=== PATIENT | female | born 1970 | race Caucasian/White ===

== ENCOUNTER → 2018-02-09 11:12 | Outpatient (CLI) | payer OTHER, SELFPAY ==
--- NOTE | 2018-02-08 11:45 | CER_PTH ---
PATIENT: CRESENCIO EDMONDSON LOC: [facility] U#:[id number] AGE/SX: 54/F ROOM: RE02/09/[address]: Dr. Vito Tovar MD : 1970 BED: DIS: SPEC #: [id number] RECD: 02/09/18 10:40 STATUS: ALEXYS JACOBY #: [id number] WALI: 02/08/18 11:[address]: Vito Tovar DEPT: SURGICAL PATHOLOGY RECD BY: Toby Mcgarry Tissues: Uterine cervix, NOS Procedures: Surgery Specimen Level IV HEADER OPERATION: Polypectomy PRE-OP DIAGNOSIS: Cervical polyp N84.1 TISSUE SUBMITTED: Cervical polyp MICROSCOPIC DIAGNOSIS Cervical polyp, biopsy: Scant strips of benign superficial endocervix with focal squamous metaplasia. AM:carolina 02/10/18 MICROSCOPIC DESCRIPTION Slides are reviewed. GROSS DESCRIPTION Received is one container labeled with the patient's name and not further designated. The specimen consists of 10 cc of jackson fluid and is totally submitted in one cassette for cell block preparation. / AM:carolina 02/09/18 TC: 5 CPT: 87811
== END ==
PROVIDERS: Referring Provider Obstetrics & Gynecology; Visit Provider Obstetrics & Gynecology
DX: N87.9 Dysplasia of cervix uteri, unspecified (principal)
CPT/HCPCS: 88305